=== PATIENT | male | born 1985 | race African-American/Black ===

== ENCOUNTER 2019-04-29 17:20 | Emergency (ER) | payer OTHER ==
[~2019-04-29] VITALS: Ht 165.1 cm; Wt 45.4 kg
--- NOTE | 2019-04-29 17:23 | NUR ---
"BIB78, FROM WORK, HAD A SYNCOPAL EPISODE BP 80/40, ADMITS ON SMOKING WEEDTODAY" PT AAOX4, -SOB, NAD NOTED, VSS ,PENDING MD MI
[2019-04-29] MEDS ORDERED: IV NS 0.9% 1,000 ML BAG IV ONE (18:00)
[2019-04-29 18:20] LABS: BASOPHILS % (AUTO) 0.7 % (0.0-2.0); EOSINOPHILS % (AUTO) 1.2 % (0.0-6.0); HEMATOCRIT 49 % (39-51); HEMOGLOBIN 16.3 g/dL (13.5-17.5); LYMPHOCYTES # (AUTO) 1.5 /CMM (0.8-4.8); LYMPHOCYTES % (AUTO) 29.1 % (20.0-44.0); MEAN CORPUSCULAR HGB CONC 33 g/dl (31.0-36.0); MEAN CORPUSCULAR VOLUME 98 fL (80-96); MONOCYTES # (AUTO) 0.3 /CMM (0.1-1.30); NEUTROPHILS # (AUTO) 3.3 /CMM (1.8-8.9); PLATELET COUNT (AUTO) 271 /CMM (150-450); RED BLOOD CELL COUNT(AUTO) 4.99 MIL/uL (4.5-6.0); WHITE BLOOD COUNT (AUTO) 5.2 K/uL (4.3-11.0)
[2019-04-29 18:30] LABS: CALCIUM, SERUM 9.3 mg/dL (8.5-10.1); CREATININE 1.3 mg/dL (0.6-1.3); POTASSIUM 3.6 mmol/L (3.5-5.1)
[2019-04-29 18:32] LABS: ALCOHOL, BLOOD < 3 mg/dL (0-0)
[2019-04-29 18:55] LABS: CREATINE KINASE, TOTAL 355 U/L (39-308)
[2019-04-29 19:00] VITALS: BP 129/80
--- NOTE | 2019-04-29 19:05 | NUR ---
Radha perkins in [facility] - 04/29/19 at 1908 by RASHAAD EDNA HARTLEY
--- NOTE | 2019-04-29 19:12 | NUR ---
Patient discharged to home in stable condition. Written and verbal after care instructions given. Patient verbalizes understanding of instruction.
== END 2019-04-29 19:14 | disposition home or self-care (01) ==
LOC: ER 17:22
DX: F19.10 Other psychoactive substance abuse, uncomplicated (principal); R55 Syncope and collapse; Z88.8 Allergy status to other drugs, medicaments and biological substances
CPT/HCPCS: 36415; 80048; 80305; 80307; 82550; 85025; 93005; 96360; 99284; J7030; G0480

== ENCOUNTER 2024-01-19 15:44 | Emergency (ER) | payer OTHER ==
[~2024-01-19] VITALS: Ht 165.1 cm; Wt 45.4 kg
[2024-01-19 15:48] VITALS: BP 159/96; TEMP 98.2
[2024-01-19] MEDS ORDERED: ACETAMINOPHEN ES 500 MG TABLET ONE (16:02)
[2024-01-19] MEDS ORDERED: IBUPROFEN 600 MG TABLET ONE (16:03)
[2024-01-19] MEDS ORDERED: IBUP-1953 PO (16:05)
[2024-01-19] MEDS: IBUPROFEN 600 MG TABLET PO ONE (16:05)
[2024-01-19] MEDS: ACETAMINOPHEN ES 500 MG TABLET PO ONE (16:06)
[2024-01-19 16:14] VITALS: O2SAT 100
== END 2024-01-19 16:15 | disposition home or self-care (01) ==
LOC: ER 15:55
DX: M26.69 Other specified disorders of temporomandibular joint (principal); K05.10 Chronic gingivitis, plaque induced; H92.01 Otalgia, right ear; F12.10 Cannabis abuse, uncomplicated; Z88.8 Allergy status to other drugs, medicaments and biological substances